=== PATIENT | male | born 1985 | race Two or more races ===

== ENCOUNTER 2017-11-04 14:37 | Observation (INO) | payer OTHER ==
[~2017-11-04] VITALS: Ht 175.3 cm; Wt 75.0 kg
[2017-11-04 15:37] LABS: BASOPHILS # (AUTO) 0.01 x10^3/uL (0-0.1); BASOPHILS % (AUTO) 0 % (0-1); EOSINOPHILS # (AUTO) 0.06 x10^3/uL (0-0.4); EOSINOPHILS % (AUTO) 1 % (1-7); LYMPHOCYTES # (AUTO) 1.19 x10^3/uL (1-3.4); LYMPHOCYTES % (AUTO) 26 % (22-44); MD NO; MEAN CORPUSCULAR HEMOGLOBIN 31.1 pg (27.5-34.5); MEAN CORPUSCULAR HGB CONC 34.4 g/dL (33.2-36.2); MEAN CORPUSCULAR VOLUME 90.5 fL (81-97); MEAN PLATELET VOLUME 8.9 fL (7.4-10.4); MONOCYTES # (AUTO) 0.38 x10^3/uL (0.2-0.8); MONOCYTES % (AUTO) 8 % (2-9); NEUTROPHILS % (AUTO) 64 % (42-75); PLATELET COUNT 197 x10^3/uL (130-400); RED BLOOD COUNT 5.28 x10^6/uL (4.38-5.82); RED CELL DISTRIBUTION WIDTH 12.9 % (9.4-14.8)
[2017-11-04 15:50] LABS: ALBUMIN 4.3 g/dL (3.4-5.0); ANION GAP 8 mmol/L (5-15); CHLORIDE 107 mmol/L (98-107)
[2017-11-04 15:54] LABS: ALANINE AMINOTRANSFERASE 36 U/L (12-78); ALKALINE PHOSPHATASE 70 U/L (45-117); BILIRUBIN,TOTAL 1.1 mg/dL (0.2-1.0); CREATININE 1.13 mg/dL (0.7-1.3); SALICYLATE LEVEL < 1.7 mg/dL (2.8-20.0); TOTAL PROTEIN 8.2 g/dL (6.4-8.2)
[2017-11-04 15:56] LABS: ACETAMINOPHEN < 2 mcg/mL (10-30)
[2017-11-04 17:21] LABS: AMPHETAMINE SCREEN, URINE Negative (Negative); BARBITURATE SCREEN, URINE Negative (Negative); BENZODIAZEPINE SCREEN, URINE Negative (Negative); CANNABINOID SCREEN, URINE Negative (Negative); COCAINE SCREEN, URINE Negative (Negative); METHADONE SCREEN, URINE Negative (Negative); OPIATE SCREEN, URINE Negative (Negative)
[2017-11-04] MEDS ORDERED: ONDANSETRON ODT 4 MG PO PRN (19:00)
[2017-11-04] MEDS ORDERED: ACETAMINOPHEN 325 MG TABLET PO PRN (19:00)
[2017-11-04] MEDS ORDERED: POLYETHYLENE GLYCOL 17 GM PACKET PO PRN (19:00)
[2017-11-04] MEDS ORDERED: LORazepam 1MG TABLET PO PRN (19:00)
[2017-11-04] MEDS ORDERED: DIPHENHYDRAMINE 50 MG CAPSULE PO PRN (19:00)
[2017-11-04] MEDS ORDERED: BISACODYL 10 MG SUPP PR PRN (19:00)
[2017-11-04 20:18] VITALS: BP 125/84
[2017-11-04] MEDS: OLANZAPINE 2.5 MG TABLET PO SCH (21:00)
[2017-11-05 08:37] VITALS: BP 113/74
[2017-11-05] MEDS ORDERED: SENNA/DOCUSATE TABLET PO SCH (09:00)
[2017-11-05 20:42] VITALS: BP 107/68
[2017-11-05] MEDS: OLANZAPINE 2.5 MG TABLET PO SCH (21:00)
== END 2017-11-05 21:57 ==
LOC: ED 18:12 → EDIP 18:13 → ED 18:28 → 2N 19:37
PROVIDERS: ADMIT Hospitalist; ATTEND Hospitalist
DX: R45.851 Suicidal ideations (principal); F33.2 Major depressive disorder, recurrent severe without psychotic features; Z91.5 Personal history of self-harm
CPT/HCPCS: 36415; 80053; 80307; 80329; 85025; 99285; G0378; G0480

== ENCOUNTER 2019-08-22 23:38 | Emergency (ER) | payer OTHER ==
[~2019-08-22] VITALS: Ht 175.3 cm; Wt 64.1 kg
[2019-08-22 23:44] VITALS: BP 112/74
--- NOTE | 2019-08-23 18:36 | NUR ---
LEFT MESSAGE REQUESTING CALL-BACK TO ED FOR RESULTS.
--- NOTE | 2019-08-23 18:49 | NUR ---
PATIENT CALLED-BACK. NOTIFIED HIM THAT HE CAME BACK NEGATIVE FOR THE MYERS VIRUS.
== END 2019-08-22 23:57 | disposition home or self-care (01) ==
LOC: ED 23:45
DX: Z03.818 Encounter for observation for suspected exposure to other biological agents ruled out (principal); Z00.00 Encounter for general adult medical examination without abnormal findings
CPT/HCPCS: 99283

== ENCOUNTER 2020-06-02 07:31 | Emergency (ER) | payer SELFPAY ==
[~2020-06-02] VITALS: Ht 175.3 cm; Wt 77.9 kg
--- NOTE | 2020-06-02 07:53 | NUR ---
Pt presents to the ER from work. He has left sided flank pain, breathing heavy from pain. Pt educated about need for clean catch urine.
[2020-06-02] MEDS ORDERED: ACETAMINOPHEN 500 MG TABLET PO ONE (08:00)
[2020-06-02] MEDS ORDERED: ACETAMINOPHEN 500 MG TABLET ONE (08:07)
[2020-06-02 08:28] LABS: ANION GAP 6 mmol/L (5-15); CALCIUM 8.8 mg/dL (8.5-10.1); CHLORIDE 110 mmol/L (98-107); CREATININE 0.96 mg/dL (0.7-1.3)
[2020-06-02 08:44] LABS: MICROSCOPIC NOT IND
--- NOTE | 2020-06-02 08:46 | NUR ---
BREAK RN: PT SITTING UP ON GURNEY. STATES 8/10 LEFT FLANK PAIN WITH MOVEMENT. DENIES NEED FOR PAIN MEDICATION INTERVENTION AT THIS TIME. VSS. NAD. CALL LIGHT W/IN REACH.
[2020-06-02] MEDS ORDERED: METHOCARBAMOL 750 MG TABLET ONE (09:29)
[2020-06-02] MEDS ORDERED: METHOCARBAMOL 750 MG TABLET PO ONE (09:30)
--- NOTE | 2020-06-02 09:36 | NUR ---
Pt remains in [facility], connected to BP and O2 monitors. Pt medicated to JUL.
[2020-06-02 09:54] VITALS: BP 118/66
== END 2020-06-02 09:58 | disposition home or self-care (01) ==
LOC: ED 08:48
DX: S39.012A Strain of muscle, fascia and tendon of lower back, initial encounter (principal); X58.XXXA Exposure to other specified factors, initial encounter; Y93.89 Activity, other specified; Y92.89 Other specified places as the place of occurrence of the external cause; Y99.8 Other external cause status
CPT/HCPCS: 36415; 80048; 81003; 99283